=== PATIENT | male | born 1940 | race Caucasian/White ===

== ENCOUNTER → 2023-06-03 | Day surgery (SDC) | payer MEDICARE, BC ==
[~2023-06-03] MED LIST: Lactated Ringers 1,000 ML IV SCH; Lidocaine 1% 30 ML SDV ONE; Propofol 200 MG/20 ML SDV ONE; fentaNYL 50 MCG/ML SDV ONE
== END ==
LOC: CC.SDS 07:48
PROVIDERS: ATTEND Family Medicine
DX: D12.6 Benign neoplasm of colon, unspecified (principal); K62.1 Rectal polyp; K29.80 Duodenitis without bleeding; M16.9 Osteoarthritis of hip, unspecified; N40.1 Benign prostatic hyperplasia with lower urinary tract symptoms; R35.1 Nocturia; M17.9 Osteoarthritis of knee, unspecified; B02.29 Other postherpetic nervous system involvement; Z86.010 Personal history of colon polyps; Z79.899 Other long term (current) drug therapy
CPT/HCPCS: 00813; 43239; 45380; 87081; 88305; 99100; J2704; J3010; J3490; J7120